=== PATIENT | male | born 1995 | race Caucasian/White ===

== ENCOUNTER 2019-06-21 13:06 | Emergency (ER) | payer SELFPAY ==
[~2019-06-21] VITALS: Ht 165.1 cm; Wt 72.7 kg
[~2019-06-21 13:06] MED LIST: DOXYCYCLINE 10100 MG PO; NO HOME MEDICATIONS
[2019-06-21 13:12] VITALS: BP 153/72; TEMP 98.2
[2019-06-21 16:10] VITALS: PULSE 90
== END 2019-06-21 16:10 | disposition home or self-care (01) ==
LOC: COL.ER 13:06
DX: R09.1 Pleurisy (principal)